=== PATIENT | male | born 1995 | race Caucasian/White ===

== ENCOUNTER 2019-12-25 19:23 | Emergency (ER) | payer OTHER, SELFPAY ==
[2019-12-25 19:30] VITALS: BP 138/85; PULSE 60; RESP 15; TEMP 36.8; O2SAT 98; BMI 28.8
--- NOTE | 2019-12-25 20:00 | ED_ITS ---
HPI - Male Genitourinary <BABS Garrison - Last Filed: 12/25/19 22:10> General Chief complaint: Urogenital-Male Stated complaint: wants STD check Time Seen by Provider: 12/25/19 19:48 Source: patient Mode of arrival: Ambulatory Limitations: no limitations History of Present Illness HPI Narrative: This is a healthy 23 year male, nonsmoker, presents to ED requesting STD check. Patient reports occurrence of a cold sore like blister in the base of the penis 2 weeks ago and lasted about 2 days then resolved. Patient reports a blister is recurring again on the same area. Patient states he had 1st painful blister this summer with more blisters around the same area which lasted for 2 days which he did not seek medical attention at that time. Patient reports he is sexually active with 1 female partner at a time and denies new partners. Patient's partner does not have similar lesions that he is aware of. Patient denies fever, chills, nausea or vomiting. Patient denies unusual penile discharge or other rashes including in palms or soles. Related Data Previous Rx's Medication Instructions Recorded acyclovir 400 mg PO TID 5 Days #15 tab 12/25/19 Allergies Allergy/AdvReac Type Severity Reaction Status Date / Time ibuprofen Allergy Verified 12/25/19 19:34 Review of Systems <BABS Garrison - Last Filed: 12/25/19 22:10> Review of Systems Narrative: General: Denies fever, chills, fatigue, malaise, sweats. HEENT: Denies sinus pain, ear pain, sore throat, difficulty swallowing, dizziness. Respiratory: Denies dyspnea, cough, wheezing, hemoptysis, sputum. Cardiovascular: Denies chest pain, palpitations, orthopnea, edema. Gastrointestinal: Denies nausea, vomiting, abdominal pain, diarrhea, constipation, melena. : Denies dysuria, frequency, incontinence, hematuria, urinary retention. Musculoskeletal: Denies weakness, joint pain or bony pain. Skin: See HPI Neurologic: Denies weakness, headache, numbness, change in speech, confusion, seizures, incoordination. Psychiatric: No concerning psychosocial issues. 12-point review of systems is negative except for those stated above. Patient History <BABS Garrison - Last Filed: 12/25/19 22:10> Medical History No significant past medical history (Acute) Surgical History No pertinent past surgical history (Acute) Social History Smoking Status: Unknown if ever smoked Smoking Status: Unknown if ever smoked alcohol intake frequency: holidays/special occasions only Substance Use Type: does not use Exam <BABS Garrison - Last Filed: 12/25/19 22:10> Narrative Exam Narrative: General appearance: well developed, well nourished, in no acute distress. Head: normocephalic, atraumatic, no scalp lesions, non-tender. ENT: Hearing grossly intact. Nose without bleeding, purulent discharge deviation. Mucous membrane moist, no mucosal lesion. Throat without erythema, tonsillar hypertrophy or exudate. Uvula in midline, airway patent. Neck/Thyroid: neck supple, full range of motion, no visible masses or meningeal signs. No JVD, non-tender without lymphadenopathy. Skin: no suspicious rashes, lesions over visible areas. Warm and dry and appropriate color for ethnicity. Heart: no clubbing, no cyanosis, no edema. S1 and S2 normal. RRR w/o murmurs, clicks, or bruits. Lungs: Breathing even and unlabored. No stridor. No accessory muscles used. Able to speak in full sentences. Chest: normal shape and expansion. Abdomen: non-obese, non-distended. Neurologic: alert and oriented. Cognitive exam, [employer] and PNS grossly intact on informal exam. Psych: good eye contact, normal affect. Initial Vital Signs Initial Vital Signs: Vital Signs Temperature 98.3 F 12/25/19 19:30 Pulse Rate 60 12/25/19 19:30 Respiratory Rate 15 12/25/19 19:30 Blood Pressure 138/85 12/25/19 19:30 Pulse Oximetry 98 12/25/19 19:30 External: circumcised, no edema, lesions (base of penis on the left groin area, one opened ulcerated lesion w/o purul) and no scrotal swelling Penis: normal penis, no condylomata, no swelling and ulceration Meatus: meatus normal Scrotum: scrotum normal and no scrotal swelling Testes: normal and epididymides normal Other: Stand by assistance from RN. Clement <Sara Chacko MD - Last Filed: 12/26/19 00:19> Initial Vital Signs Initial Vital Signs: Vital Signs Temperature 98.3 F 12/25/19 19:30 Pulse Rate 60 12/25/19 19:30 Respiratory Rate 15 12/25/19 19:30 Blood Pressure 138/85 12/25/19 19:30 Pulse Oximetry 98 12/25/19 19:30 Scores <[facility] - Last Filed: 12/25/19 22:10> [facility] [place] coma scale eye opening: Spontaneous Will coma scale verbal response: Orientated Will coma scale motor response: Obey commands Will coma scale total score: 15 Course <Osmany GIORGIO PadronP - Last Filed: 12/25/19 22:10> Orders Ordered: ED Orders 12/25/19 20:12 Chlamydia Gonorrhea PCR -URINE Stat Urinalysis and Microscopic Stat Vital Signs Vital signs: Vital Signs - 8 hr 12/25/19 19:30 12/25/19 21:03 Temperature 98.3 F Pulse Rate 60 70 Respiratory Rate 15 14 Blood Pressure 138/85 138/79 Pulse Oximetry 98 99 <Sara Chacko MD - Last Filed: 12/26/19 00:19> Orders Ordered: ED Orders 12/25/19 20:12 Chlamydia Gonorrhea PCR -URINE Stat Urinalysis and Microscopic Stat Vital Signs Vital signs: Vital Signs - 8 hr 12/25/19 19:30 12/25/19 21:03 Temperature 98.3 F Pulse Rate 60 70 Respiratory Rate 15 14 Blood Pressure 138/85 138/79 Pulse Oximetry 98 99 MDM - Male Genitourinary <GIORGIO GarrisonP - Last Filed: 12/25/19 22:10> Differential Diagnosis Differential diagnosis: Likely genital herpes simplex and other (Chlamydia, gonorrhea) Medical Records Attestation: I reviewed the patient's medical records. Lab Data Attestation: I reviewed the patient's lab results. Labs: Lab Results 12/25/19 12/25/19 Range/Units 20:12 20:12 Urine Color Yellow Urine Appearance Clear Urine pH 7.0 (4.5-8.0) Ur Specific [place] 1.020 (1.000-1.035) Urine Protein Negative (Negative) Urine Glucose (UA) Negative (Negative) g/dL Urine Ketones Trace H (NEGATIVE) Urine Occult Blood Negative (Negative) Urine Nitrate Negative (Negative) Urine Bilirubin Negative (NEGATIVE) Urine Urobilinogen 0.2 (0.2) E.U./dL Ur Leukocyte Esterase Negative (NEGATIVE) Urine RBC None seen (0-5/HPF) Urine WBC None seen (0-5/HPF) Urine Bacteria None seen (None) Ur Culture Indicated? Cult not indicated Micro UA Comment Microscopic normal Ur Chlamydia DNA (PCR) Not detected N gonorrhoeae DNA (PCR) Not detected MDM Narrative Medical decision making narrative: Patient was discharged to home with Acyclovir 400 mg t.i.d. 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 Patient advised to follow up with his primary care physician at the [facility] with serologic testing to confirm this. GC and chlamydia urine PCR test were negative today. Patient advised to use condom all time to prevent viral shedding transmission to others even though he does not have symptoms. Return precautions were discussed with the patient and patient verbalized understanding and in agreement with treatment plan. <Sara Chacko MD - Last Filed: 12/26/19 00:19> Lab Data Labs: Lab Results 12/25/19 12/25/19 Range/Units 20:12 20:12 Urine Color Yellow Urine Appearance Clear Urine pH 7.0 (4.5-8.0) Ur Specific [place] 1.020 (1.000-1.035) Urine Protein Negative (Negative) Urine Glucose (UA) Negative (Negative) g/dL Urine Ketones Trace H (NEGATIVE) Urine Occult Blood Negative (Negative) Urine Nitrate Negative (Negative) Urine Bilirubin Negative (NEGATIVE) Urine Urobilinogen 0.2 (0.2) E.U./dL Ur Leukocyte Esterase Negative (NEGATIVE) Urine RBC None seen (0-5/HPF) Urine WBC None seen (0-5/HPF) Urine Bacteria None seen (None) Ur Culture Indicated? Cult not indicated Micro UA Comment Microscopic normal Ur Chlamydia DNA (PCR) Not detected N gonorrhoeae DNA (PCR) Not detected Discharge Plan Departure Patient Disposition: Home Clinical Impression: Genital HSV Qualifiers: Herpes simplex infection site: other site of male genital organs Qualified Code(s): A60.02 - Herpesviral infection of other male genital organs Discharge Date/Time: 12/25/19 21:05 Instructions: DI for Genital Herpes Activity Restrictions/Additional Instructions: You have been diagnosed with [mild form of HSV type 2 per physical exam. Please follow-up with your doctor for blood test to confirm this. You will receive a phone call if GC chlamydia is positive tonight to follow-up with the treatment. Please use condoms for barrier protection to prevent parisa others to HSV infection even you do not have symptoms.]. What to do: *Take your medications as directed. You elected to use medications during prodromal period as needed at this time. The medication has been transmitted to [facility] in [place]. *Follow up with your primary care provider in 2-3 days, call for an appointment. Let them know you were seen in the ED and that we asked you to be seen in follow up. *Return to ED if you have any new, worsening, or concerning symptoms, such as [chest pain, breathing difficulty, unable to tolerate fluids, severe pain, or any acute concerns]. Prescriptions: New acyclovir 400 mg tablet 400 mg PO TID 5 Days Qty: 15 RF: 0 Referrals: [facility] [Outside]
[2019-12-25 20:19] LABS: Bacteria Urine None Seen; RBC Urine None Seen (0-5/HPF); WBC Urine None Seen (0-5/HPF)
[2019-12-25 20:22] LABS: Appearance Urine UA CLEAR; Bilirubin Urine UA NEGATIVE (NEGATIVE); Color Urine UA YELLOW; Glucose Urine UA NEGATIVE (Negative); Ketones Urine UA TRACE (NEGATIVE); Leukocyte Esterase Urine UA NEGATIVE (NEGATIVE); Nitrite Urine UA NEGATIVE (Negative); Occult Blood Urine UA NEGATIVE (Negative); Protein Urine UA NEGATIVE (Negative); Urobilinogen Urine UA 0.2 E.U./dL (0.2)
[2019-12-25 20:27] LABS: Culture Indicated Urine Cult Not Indicated; Urine Comments Microscopic Normal
[2019-12-25 21:03] VITALS: BP 138/79; PULSE 70; RESP 14; O2SAT 99
[2019-12-25 21:46] LABS: Urine N gonorrhoeae NOT DETECTED
[2019-12-25 21:58] LABS: Urine Chlamydia NOT DETECTED
== END 2019-12-25 21:05 | disposition home or self-care (01) ==
PROVIDERS: Emergency Provider Nurse Practitioner Family
DX: A60.02 Herpesviral infection of other male genital organs (principal)
CPT/HCPCS: 81001; 87491; 87591; 99281; 99283